=== PATIENT | female | born 1965 | race Caucasian/White ===

== ENCOUNTER 2020-12-22 07:48 | Outpatient (CLI) | payer OTHER, SELFPAY ==
--- NOTE | ~2020-12-22 | MM_ITS ---
EXAMINATION: MM screening [facility] BI w brandt HISTORY: Screening TECHNIQUE: Craniocaudal and mediolateral oblique 3-D tomosynthesis images were obtained and synthetic 2-D images were generated. CAD analysis was submitted and interpreted. COMPARISON: No prior mammogram is available for comparison at this institution. BREAST PARENCHYMAL COMPOSITION: There are scattered areas of fibroglandular density. FINDINGS: There is no evidence of suspicious mass, calcification, or architectural distortion to sugg est malignancy in either breast. There has been no suspicious interval change. IMPRESSION: 1. No mammographic evidence of malignancy. 2. Recommend routine screening mammography in one year. BI-RADS Category 1: Negative Reviewed, dictated and finalized at location A.
== END 2020-12-22 07:49 | disposition home or self-care (01) ==
LOC: ANHIMG 07:51
PROVIDERS: PCP Family Medicine; Visit Provider Obstetrics & Gynecology
DX: Z12.31 Encounter for screening mammogram for malignant neoplasm of breast (principal)
CPT/HCPCS: 77063; 77067

== ENCOUNTER 2021-07-14 09:53 | Emergency (ER) | payer BC, SELFPAY ==
--- NOTE | ~2021-07-14 | CT_ITS ---
EXAMINATION: CT abdomen pelvis w con INDICATION: Abdominal pain and nausea, history of ulcerative colitis TECHNIQUE: Computed tomographic images of the abdomen and pelvis were obtained after the administrati on of 100 cc of Omnipaque 350 intravenous contrast. The dose-length product (DLP) was 1012.67 mGy-cm. Automated exposure control and iterative reconstruction technique were employed. COMPARISON: 09/26/2018 FINDINGS: The lung bases are clear. The heart size is normal. The gallbladder is surgically absent. S cattered drop gallstones are again noted. Cysts of the liver measure up to 8 mm. The spleen, pancreas , and adrenal glands are normal. Cysts of the kidneys measure up to 1.9 cm on the left. No pathologic ally enlarged abdominal or pelvic lymph nodes are identified. There is no free intraperitoneal gas or evidence of bowel obstruction. There is mild wall thickening of the distal transverse and descending colon. A small amount of gas is present in the urinary bladder which may be due to catheterization. Clinically correlate. There is moderate lumbar spondylosis. IMPRESSION: 1. Mild wall thickening of the distal transverse and descending colon which may reflect mild colitis. Reviewed, dictated and finalized at location A.
[2021-07-14 09:55] VITALS: BP 154/86; PULSE 97; RESP 18; TEMP 36.3; O2SAT 100
[2021-07-14 10:15] LABS: Basophils Percent Auto 0.3 % (0.2-1.2); Eosinophils Absolute Auto 0.1 K/mm3 (0-0.3); Eosinophils Percent Auto 0.7 % (0-4.4); Hematocrit 47.4 % (37.0-47.0); Hemoglobin 16.1 g/dL (12.0-15.0); Immature Granulocyte Absolute 0.02 K/mm3 (0.00-0.031); Immature Granulocyte Percent A 0.2 % (0-0.5); Lymphocytes Absolute Auto 2.12 K/mm3 (0.9-3.2); Lymphocytes Percent Auto 21.7 % (18.3-44.2); Mean Corpuscular Hemoglobin 30.5 pg (26-34); Mean Corpuscular Volume 89.8 fl (80-100); Mean Platelet Volume 8.9 fl (7.4-10.4); Monocytes Absolute Auto 0.6 K/mm3 (0.1-0.6); Monocytes Percent Auto 5.6 % (2.6-8.5); Neutrophils Percent Auto 71.5 % (45.5-73.1); Platelet Count Result 318 k/mm3 (150-375); Red Blood Count 5.28 M/mm3 (4.2-5.4); White Blood Count 9.8 K/mm3 (4.5-10.0)
[2021-07-14 10:25] LABS: INR 1.1; Prothrombin Time 13.7 Seconds (11.1-14.7)
[2021-07-14 10:26] LABS: Partial Thromboplastin Time 29.8 SECONDS (22.3-36.8)
[2021-07-14 10:27] LABS: Alanine Aminotransferase 26 U/L (4-35); Albumin Level 4.8 g/dL (3.5-5.1); Alkaline Phosphatase 91 U/L (38-126); Anion Gap 9 mmol/L (8-16); Aspartate Amino Transferase 30 U/L (14-36); Bilirubin,Total 0.8 mg/dL (0.2-1.3); Blood Urea Nitrogen 16 mg/dL (7-17); Calcium 9.8 mg/dL (8.4-10.2); Carbon Dioxide 30 mmol/L (22-30); Chloride 101 mmol/L (98-107); Estimated CRCL calculation 64 ml/min; Estimated Glomerular Filt Rate 52; Glucose 101 mg/dL (65-110); Potassium 3.4 mmol/L (3.4-5.0); Sodium 140 mmol/L (137-145)
--- NOTE | 2021-07-14 10:49 | ED.GENADULT ---
HPI - General Adult General Chief complaint: GI Bleed Stated complaint: abdominal pain Time Seen by Provider: 07/14/21 09:57 Source: patient, family and RN notes reviewed Mode of arrival: ambulatory Limitations: no limitations History of Present Illness HPI narrative: 55-year-old female with history of ulcerative colitis, hypertension, high cholesterol presenting to the emergency department for evaluation of nausea vomiting diarrhea and lower abdominal pain. Patient states that the symptoms started yesterday at approximately 4 PM. Patient started with nausea and vomiting and it did progress to diarrhea. Patient states that she has had multiple bowel movements with bright red blood. Patient states due to her decreased p.o. intake that she is passing watery stool with blood. Patient reports a history of ulcerative colitis and does follow-up with GI, Dr. Sawyer. Patient's last colonoscopy was in March 2017. Patient does not take any medications for ulcerative colitis. Related Data Home Medications Medication Instructions Recorded Confirmed cholecalciferol (vitamin D3) 25 1,000 unit PO DAILY 01/17/19 10/31/20 mcg (1,000 unit) chewable tablet Allergies Allergy/AdvReac Type Severity Reaction Status Date / Time No Known Allergies Allergy Unknown Verified 07/14/21 10:14 Review of Systems Review of Systems: CONSTITUTIONAL: Denies fever, chills, or sweats. EYES: Denies visual changes, redness, or discharge. ENT: Denies rhinorrhea, congestion, sore throat, or otalgia. CARDIOVASCULAR: Denies chest pain, palpitations, or edema. RESPIRATORY: Denies cough or dyspnea. GASTROINTESTINAL: See HPI GENITOURINARY: Denies dysuria or hematuria. SKIN: Denies rash or itching. MUSCULOSKELETAL: Denies back pain, joint pain, or myalgia. NEUROLOGIC: Denies headache, numbness, or weakness. PSYCHIATRIC: Denies anxiety or depression. [facility] Past Medical History Medical History Chest skin lesion ANJEL (generalized anxiety disorder) GERD without esophagitis Hyperlipidemia Hypertension IBS (irritable bowel syndrome) Mild intermittent asthma in adult without complication Prolapse of bladder Vitamin D deficiency Surgical History Surgical History History of cholecystectomy History of hernia repair History of partial hysterectomy Family History Family History Mother Diabetes mellitus Cerebrovascular accident Father Hypertension Social History Social History Second hand tobacco smoke exposure: No Smoking end date: 03/14/06 Alcohol intake: current Alcohol use details: Rarely. Substance use: never Substance use type: does not use Gender identity (if verbalized by the patient): Female Spiritual care concerns: No Agree to blood products: Yes Exam Narrative: APPEARANCE: Well appearing, no pain, no distress, well-nourished. HEAD: normocephalic, atraumatic. EYES: PERRLA/EOMI, conjunctivae clear. NOSE: Normal no drainage NECK: Supple. No adenopathy, no masses. RESPIRATORY: Airway patent, respirations nonlabored. Clear to auscultation bilaterally, no rales, rhonchi, wheezing. CARDIOVASCULAR: Regular rate and rhythm without murmurs rubs or gallops. ABDOMINAL: Soft, nondistended, normal bowel sounds, mild lower abdominal tenderness. Patient was Hemoccult negative from below. Patient had no further bloody stools while in the emergency department MUSCULOSKELETAL: Moves all extremities. Strength/ROM intact, No edema, No calf tenderness. NEURO: Alert. Cranial nerves II through XII intact. Good gait. Good coordination SKIN: Warm, dry. Normal Color Course Course Emergency Course: Patient had no further bloody stools in the ED. CT showed evidence of colitis. Patient was Hemoccult negative from
--- NOTE | 2021-07-14 11:08 | PC.NURSE ---
Care assumed of pt at this time. IV access established and pt is awaiting CT Scan.
[2021-07-14] MEDS: HYDROmorphone HCL INJ (*CRX) 1 MG/ML SYR 0.5 MG IV PUSH (12:07)
[2021-07-14 12:10] VITALS: BP 140/79; PULSE 87; RESP 16; O2SAT 100
[2021-07-14] MEDS: CIPROFLOXACIN 500 MG TAB PO (12:35)
[2021-07-14] MEDS: metroNIDAZOLE 250 MG TABLET 500 MG PO (12:38)
[2021-07-14 12:52] VITALS: BP 138/78; PULSE 78; RESP 18; O2SAT 98
== END 2021-07-14 12:53 | disposition home or self-care (01) ==
PROVIDERS: Emergency Provider Emergency Medicine; PCP Family Medicine
DX: K52.9 Noninfective gastroenteritis and colitis, unspecified (principal); I10 Essential (primary) hypertension; E78.5 Hyperlipidemia, unspecified; J45.20 Mild intermittent asthma, uncomplicated; K21.9 Gastro-esophageal reflux disease without esophagitis; E55.9 Vitamin D deficiency, unspecified; N81.10 Cystocele, unspecified; Z87.891 Personal history of nicotine dependence
CPT/HCPCS: 36415; 74177; 80053; 85025; 85610; 85730; 96374; 99284; A9270; J1170; Q9967

== ENCOUNTER 2021-09-25 01:21 | Day surgery (SDC) | payer BC, SELFPAY ==
[2021-09-08 14:47] VITALS: BMI 30.2
--- NOTE | 2021-09-24 14:47 | WPDANESEPPF ---
Anes - Initial Pre Proc Eval Procedure: Operation Date: 09/25/21 08:30 Proposed Procedures p Esophagogastroduodenoscopy & Colonoscopy - Joshua Sawyer MD <Domenico Romeo, DO - Last Filed: 09/24/21 14:48> Date/Time: 09/24/21 14:47 <Domenico Romeo DO - Last Filed: 09/24/21 14:48> Surgeon: Joshua Sawyer MD <Domenico Romeo, DO - Last Filed: 09/24/21 14:48> Pre Op Diagnosis: abnor. CAT scan, colitis, epigastric pain <Domenico Romeo DO - Last Filed: 09/24/21 14:48> Patient Data Age: 56 Gender: F Height: 1.78 m Weight: 95.4 kg <Domenico Romeo DO - Last Filed: 09/24/21 14:48> Allergies Allergy/AdvReac Type Severity Reaction Status Date / Time No Known Allergies Allergy Unknown Verified 09/25/21 07:30 <Domenico Romeo DO - Last Filed: 09/24/21 14:48> Home Medications Medication Instructions Recorded Confirmed Type cholecalciferol (vitamin D3) 25 1,000 unit PO DAILY 01/17/19 09/08/21 History mcg (1,000 unit) chewable tablet albuterol sulfate 90 mcg/actuation 2 puff inhalation Q4-6H PRN 11/06/20 09/08/21 Rx aerosol inhaler (ProAir HFA) shortness of breath or wheezing #8 grams lansoprazole 30 mg capsule,delayed See Rx Instructions .Route 05/24/21 09/08/21 Rx release .COMPLEX #90 caps lisinopril 20 mg tablet 20 mg PO DAILY #90 tabs 05/24/21 09/08/21 Rx simvastatin 40 mg tablet 40 mg PO DAILY #90 tabs 05/27/21 09/08/21 Rx bupropion HCl 200 mg tablet,12 hr 200 mg PO BID #180 tabs 06/01/21 09/08/21 Rx sustained-release ayrmlyap-pxr-K. coag-B. See Rx Instructions PO .COMPLEX 07/15/21 09/08/21 History subtilis-inulin 1 billion cell-1 gram chew tab (Culturelle Probiotic-Multivit) cholestyramine (with sugar) 4 gram 4 g PO DAILY PRN diarrhea #378 08/13/21 09/08/21 Rx oral powder (Questran) grams buspirone 5 mg tablet 5 mg PO BID 09/08/21 09/08/21 History <Domenico Romeo DO - Last Filed: 09/24/21 14:48> Patient hx anesthesia problems: none <Annelise Murray CRNA - Last Filed: 09/25/21 08:26> Family hx anesthesia problems: none <Annelise Murray CRNA - Last Filed: 09/25/21 08:26> Results Review: All pre-operative results and documents have been reviewed as part of the pre-operative evaluation. <Domenico Romeo DO - Last Filed: 09/24/21 14:48> [facility] Past Medical History Medical History: Medical History Chest skin lesion ANJEL (generalized anxiety disorder) GERD without esophagitis History of ulcerative colitis Hyperlipidemia Hypertension IBS (irritable bowel syndrome) Mild intermittent asthma in adult without complication Prolapse of bladder Vitamin D deficiency <Domenico Romeo DO - Last Filed: 09/24/21 14:48> Surgical History Surgical History: Surgical History History of cholecystectomy History of hernia repair History of partial hysterectomy <Domenico Romeo DO - Last Filed: 09/24/21 14:48> Family History Family History: Family History Mother Diabetes mellitus Cerebrovascular accident Father Hypertension <Domenico Romeo DO - Last Filed: 09/24/21 14:48> Social History Social History: Social History Smoking status: Former smoker Second hand tobacco smoke exposure: No Smoking end date: 03/14/06 Alcohol intake: current Alcohol use details: Rarely. Substance use: never Substance use type: does not use Living arrangements: with family Gender identity (if verbalized by the patient): Female Spiritual care concerns: No Agree to blood products: Yes <Domenico Romeo, - Last Filed: 09/24/21 14:48> Anes - Avery Final PreProcedure Day of Procedure
[2021-09-25 07:31] VITALS: BP 147/83; PULSE 82; RESP 20; TEMP 36.4; O2SAT 100; BMI 30.2
[2021-09-25] MEDS: LACTATED RINGERS 1,000 ML 150 ML IV CONT (07:46)
--- NOTE | 2021-09-25 08:16 | PM.IMHP ---
H&P: HPI History of Present Illness Date/Time: 09/25/21 08:16 Chief Complaint: History of abnormal CT scan and epigastric pain. Narrative: This is a 56-year-old white female patient who presents for colonoscopy an EGD. Patient has a history of ER visit in May of 2021 because of bloody diarrhea. At that time CT scan suggests thickening of the colon, it was interpreted as colitis and patient was treated with broad-spectrum antibiotics. Patient states bleeding has resolved. She does not have diarrhea ongoing. She presents today for colonoscopy to assess this more thoroughly. At 1 time in the past was felt to have colitis and it is uncertain whether this is an ongoing lesion. Patient also complains of epigastric abdominal pain bloating and cramping. She has been treated with pantoprazole but also supplements this with lansoprazole and Pepcid but symptoms persist. She does notice some regurgitation. She continues to have abdominal cramping. Some symptoms improved with Gas- X. An EGD is requested to assess for upper GI pain. Review of Systems Review of Systems: Review of systems noncontributory [facility] Past Medical History Medical History (Updated 09/25/21 @ 08:18 by Joshua Sawyer MD) Chest skin lesion ANJEL (generalized anxiety disorder) GERD without esophagitis History of ulcerative colitis Hyperlipidemia Hypertension IBS (irritable bowel syndrome) Mild intermittent asthma in adult without complication Prolapse of bladder Vitamin D deficiency Surgical History Surgical History History of cholecystectomy History of hernia repair History of partial hysterectomy Family History Family History Mother Diabetes mellitus Cerebrovascular accident Father Hypertension Social History Social History Smoking status: Former smoker Second hand tobacco smoke exposure: No Smoking end date: 03/14/06 Alcohol intake: current Alcohol use details: Rarely. Substance use: never Substance use type: does not use Living arrangements: with family Gender identity (if verbalized by the patient): Female Spiritual care concerns: No Agree to blood products: Yes Meds Home Medications and Allergies Home Medications Medication Instructions Recorded Confirmed Type cholecalciferol (vitamin D3) 25 1,000 unit PO DAILY 01/17/19 09/08/21 History mcg (1,000 unit) chewable tablet albuterol sulfate 90 mcg/actuation 2 puff inhalation Q4-6H PRN 11/06/20 09/08/21 Rx aerosol inhaler (ProAir HFA) shortness of breath or wheezing #8 grams lansoprazole 30 mg capsule,delayed See Rx Instructions .Route 05/24/21 09/08/21 Rx release .COMPLEX #90 caps lisinopril 20 mg tablet 20 mg PO DAILY #90 tabs 05/24/21 09/08/21 Rx simvastatin 40 mg tablet 40 mg PO DAILY #90 tabs 05/27/21 09/08/21 Rx bupropion HCl 200 mg tablet,12 hr 200 mg PO BID #180 tabs 06/01/21 09/08/21 Rx sustained-release bxkostzs-jjq-K. coag-B. See Rx Instructions PO .COMPLEX 07/15/21 09/08/21 History subtilis-inulin 1 billion cell-1 gram chew tab (Culturelle Probiotic-Multivit) cholestyramine (with sugar) 4 gram 4 g PO DAILY PRN diarrhea #378 08/13/21 09/08/21 Rx oral powder (Questran) grams buspirone 5 mg tablet 5 mg PO BID 09/08/21 09/08/21 History Allergies Allergy/AdvReac Type Severity Reaction Status Date / Time No Known Allergies Allergy Unknown Verified 09/25/21 07:30 Vital Signs Vital Signs - 24 hr 09/25/21 07:31 Temperature 97.6 F Pulse Rate 82 Respiratory Rate 20 Blood Pressure 147/83 H Pulse Oximetry 100 Oxygen Delivery Room Air Exam Narrative: physical exam reveals patient to be somewhat overweight. HEENT exam reveals no icterus. Lungs are clear to auscultation and percussion. Heart is without murmur or extra sounds. Abdominal exam yonis
[2021-09-25] MEDS: BENZOCAINE (*SP) 60 ML SPRAY CAN (HURRICAINE) 1 SPRAY MUCOUS MEM (08:31)
--- NOTE | 2021-09-25 09:10 | SUR.OPER ---
EGD STARTED 833, ENDED 0837. COLONOSCOPY STARTED O845, ENDED 0909.
[2021-09-25 09:14] VITALS: BP 108/66; PULSE 72; RESP 18; O2SAT 99
[2021-09-25 09:24] VITALS: BP 110/67; PULSE 71; RESP 18; O2SAT 100
[2021-09-25 09:34] VITALS: BP 112/82; PULSE 73; RESP 18; O2SAT 100
== END 2021-09-25 09:39 | disposition home or self-care (01) ==
PROVIDERS: PCP Family Medicine; Visit Provider Internal Medicine Gastroenterology
PROC: 0DJ08ZZ Inspection of Upper Intestinal Tract, Via Natural or Artificial Opening Endoscopic (ICD-10-PCS; CPT 43235; principal; 2021-09-25 08:30)
DX: D12.2 Benign neoplasm of ascending colon (principal); K64.8 Other hemorrhoids; K31.7 Polyp of stomach and duodenum; K21.9 Gastro-esophageal reflux disease without esophagitis; R14.0 Abdominal distension (gaseous); R10.9 Unspecified abdominal pain; I10 Essential (primary) hypertension; E78.5 Hyperlipidemia, unspecified; J45.20 Mild intermittent asthma, uncomplicated; E55.9 Vitamin D deficiency, unspecified; F41.1 Generalized anxiety disorder; Z87.19 Personal history of other diseases of the digestive system; K58.9 Irritable bowel syndrome, unspecified; Z87.891 Personal history of nicotine dependence; Z79.51 Long term (current) use of inhaled steroids; E66.9 Obesity, unspecified; Z68.30 Body mass index [BMI] 30.0-30.9, adult
CPT/HCPCS: 45385; 43250; 88305; J2704; J7120

== ENCOUNTER 2021-12-24 10:21 | Outpatient (CLI) | payer BC, SELFPAY ==
--- NOTE | 2021-12-24 10:58 | ECG_ITS ---
Measurements Intervals [place] Rate: 77 P: 45 IA: 161 QRS: -3 QRSD: 86 T: 30 QT: 345 QTc: 392 Interpretive Statements SINUS RHYTHM NONSPECIFIC T-WAVE ABNORMALITY COMPARED TO ECG 12/01/2018 13:05:39 NO SIGNIFICANT CHANGES Electronically Signed On 12-24-2021 14:58:16 CDT by Tricia Mckeon M.D.
== END 2021-12-24 10:22 | disposition home or self-care (01) ==
LOC: ANHLAB 10:25
PROVIDERS: PCP Family Medicine; Visit Provider Physician Assistant
DX: R94.31 Abnormal electrocardiogram [ECG] [EKG] (principal); Z82.49 Family history of ischemic heart disease and other diseases of the circulatory system
CPT/HCPCS: 93005

== ENCOUNTER 2022-02-06 07:41 | Outpatient (CLI) | payer BC, SELFPAY ==
--- NOTE | ~2022-02-06 | MM_ITS ---
EXAMINATION: MM screening henri BI w brandt HISTORY: Screening mammogram TECHNIQUE: Craniocaudal and mediolateral oblique 3-D tomosynthesis images were obtained and synthetic 2-D images were generated. CAD analysis was submitted and interpreted. COMPARISON: 12/22/2020 bilateral screening mammogram BREAST PARENCHYMAL COMPOSITION: The breasts are almost entirely fatty. FINDINGS: Scattered punctate benign microcalcifications... There is no evidence of suspicious mass, c alcification, or architectural distortion to suggest malignancy in either breast. There has been no s uspicious interval change. IMPRESSION: 1. No mammographic evidence of malignancy. 2. Recommend routine screening mammography in one year. BI-RADS Category 1: Negative Reviewed, dictated and finalized at location A. 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
== END 2022-02-06 07:42 | disposition home or self-care (01) ==
PROVIDERS: PCP Family Medicine; Visit Provider Nurse Practitioner
DX: Z12.31 Encounter for screening mammogram for malignant neoplasm of breast (principal)
CPT/HCPCS: 77063; 77067

== ENCOUNTER 2023-01-05 10:07 | Outpatient (CLI) | payer BC, SELFPAY ==
--- NOTE | ~2023-01-05 | XR_ITS ---
XR sacroiliac joints min 3V 01/05/2023 10:41 Indication: Sciatica. Low back pain Procedure: 3 views sacroiliac joints Comparison: No prior studies for comparison. Findings: There is symmetric appearance to the sacroiliac joints. No significant degenerative change, erosion or ankylosis. Sacral foramen are symmetric. There is osteitis pubis. Impression: 1: No significant abnormality of the sacroiliac joints. Reviewed, dictated and finalized at location B. Impression: 1: No significant abnormality of the sacroiliac joints.
--- NOTE | ~2023-01-05 | XR_ITS ---
XR lumbar spine min 4V 01/05/2023 10:40 Indication: Sciatica. Procedure: 5 views lumbar spine Comparison: No prior studies for comparison. Findings: There is levoscoliosis. There is grade 2 spondylolisthesis at L4-5 secondary to facet hyper trophy. There is disc narrowing at all lumbar levels. There is advanced facet hypertrophy at L3-4 thr ough L5-S1. Vertebral body heights are maintained. There is grade 1 degenerative spondylolisthesis at L5-S1. There is levoscoliosis. Pedicles intact. Sacral foramen are symmetric. Status post cholecyste ctomy. Impression: 1: Severe lumbar spondylosis. Reviewed, dictated and finalized at location B. Impression: 1: Severe lumbar spondylosis.
--- NOTE | ~2023-01-05 | XR_ITS ---
XR elbow RT 2V DATE: 01/05/2023 10:39 INDICATION: Pain and limited range of motion of elbow. No known injury. TECHNIQUE: AP and lateral views COMPARISON: None FINDINGS: No fracture or dislocation or joint effusion. No periosteal reaction or bone destruction. IMPRESSION: Negative Reviewed, dictated and finalized at location A. IMPRESSION: Negative
== END 2023-01-05 10:08 | disposition home or self-care (01) ==
LOC: ANHIMG 10:09
PROVIDERS: PCP Family Medicine; Visit Provider Physician Assistant
DX: M25.521 Pain in right elbow (principal); M54.30 Sciatica, unspecified side
CPT/HCPCS: 72110; 72202; 73070

== ENCOUNTER 2023-02-10 12:10 | Emergency (ER) | payer BC, SELFPAY ==
--- NOTE | ~2023-02-10 | XR_ITS ---
EXAMINATION: XR chest 2V DATE: 02/10/2023 13:14 INDICATION: Palpitations. Chest pressure. TECHNIQUE: Frontal and lateral views of the chest were obtained. COMPARISON: Chest 2 views 02/21/2008 FINDINGS: There is no pneumonia, pleural effusion, or pneumothorax. The heart size is normal. Surgica l clips in the right upper quadrant are likely from cholecystectomy. IMPRESSION: 1. No acute cardiopulmonary disease. Reviewed, dictated and finalized at location A. R BUILDER
[2023-02-10 12:30] VITALS: BP 175/90; PULSE 104; RESP 16; TEMP 36.3; O2SAT 100
--- NOTE | 2023-02-10 12:36 | ECG_ITS ---
Measurements Intervals [place] Rate: 90 P: 35 NC: 154 QRS: -26 QRSD: 91 T: 32 QT: 329 QTc: 404 Interpretive Statements SINUS RHYTHM DELAYED PRECORDIAL R/S TRANSITION BASELINE ARTIFACT- I, III, AVR, AVL, AVF, V4-V6 BORDERLINE ECG COMPARED TO ECG 12/24/2021 11:22:17 NO SIGNIFICANT CHANGES Electronically Signed On 02-10-2023 12:49:48 [employer] by Rishi Hernandez D.O.
[2023-02-10 13:02] LABS: Basophils Percent Auto 0.5 % (0.2-1.2); Eosinophils Absolute Auto 0.1 K/mm3 (0-0.3); Eosinophils Percent Auto 1.9 % (0-4.4); Hematocrit 43.6 % (37.0-47.0); Hemoglobin 14.1 g/dL (12.0-15.0); Immature Granulocyte Absolute 0.03 K/mm3 (0.00-0.031); Immature Granulocyte Percent A 0.5 % (0-0.5); Lymphocytes Absolute Auto 1.68 K/mm3 (0.9-3.2); Lymphocytes Percent Auto 28.9 % (18.3-44.2); Mean Corpuscular HGB Conc 32.3 g/dl (32-36); Mean Corpuscular Hemoglobin 30.5 pg (26-34); Mean Corpuscular Volume 94.2 fl (80-100); Mean Platelet Volume 9.2 fl (7.4-10.4); Monocytes Absolute Auto 0.4 K/mm3 (0.1-0.6); Monocytes Percent Auto 6.2 % (2.6-8.5); Neutrophils Absolute Auto 3.6 K/mm3 (1.3-6.7); Platelet Count Result 272 k/mm3 (150-375); Red Blood Count 4.63 M/mm3 (4.2-5.4); Red Cell Distribution Width 13.1 % (11.5-14.5); White Blood Count 5.8 K/mm3 (4.5-10.0)
[2023-02-10 13:04] LABS: Alanine Aminotransferase 27 U/L (6-35); Albumin Level 4.6 g/dL (3.5-5.1); Alkaline Phosphatase 74 U/L (38-126); Anion Gap 11 mmol/L (8-16); Aspartate Amino Transferase 23 U/L (14-36); Bilirubin,Total 0.7 mg/dL (0.2-1.3); Blood Urea Nitrogen 12 mg/dL (7-17); Calcium 9.8 mg/dL (8.4-10.2); Carbon Dioxide 28 mmol/L (22-30); Chloride 102 mmol/L (98-107); Estimated CRCL calculation 82 ml/min; Estimated Glomerular Filt Rate > 60; Glucose 93 mg/dL (65-110); Lipase 31 U/L (23-300); Potassium 3.8 mmol/L (3.4-5.0); Sodium 141 mmol/L (137-145)
[2023-02-10 13:11] LABS: Prothrombin Time 13.2 Seconds (11.1-14.7)
[2023-02-10 13:14] LABS: Partial Thromboplastin Time 29.6 SECONDS (22.3-36.8); Troponin I < 0.012 ng/mL (0.000-0.034)
[2023-02-10 15:15] VITALS: BP 150/92; PULSE 89; RESP 17; O2SAT 100
[2023-02-10 15:45] VITALS: BP 128/87; PULSE 80; RESP 14; O2SAT 100
--- NOTE | 2023-02-10 16:06 | ED.ARRPALP ---
HPI - Arrhythmia/Palpitations General Chief Complaint: Arrhythmia/Palpitations Stated Complaint: heart fluttering x 30 mins Time Seen by Provider: 02/10/23 15:09 Source: patient Mode of arrival: ambulatory Limitations: no limitations History of Present Illness HPI narrative: This is a 57 year old female that presents to the ER for palpitations. Reports she was just seated and started to feel like her heart was racing. Reports she took her blood pressure and the monitor told her her heart rhythm was abnormal which prompted her to be seen. Denies chest pain, shortness of breath or swelling in her legs. Related Data Home Medications Medication Instructions Recorded Confirmed cholecalciferol (vitamin D3) 25 1,000 unit PO DAILY 01/17/19 01/05/23 mcg (1,000 unit) chewable tablet kxqcqxbd-rqx-N. coag-B. See Rx Instructions PO .COMPLEX 07/15/21 01/05/23 subtilis-inulin 1 billion cell-1 gram chew tab (Culturelle Probiotic-Multivit) Allergies Allergy/AdvReac Type Severity Reaction Status Date / Time No Known Allergies Allergy Unknown Verified 01/05/23 08:33 Review of Systems Review of Systems: CONSTITUTIONAL: Denies fever CARDIOVASCULAR: Reports palpitations. Denies chest pain, or edema. RESPIRATORY: Denies dyspnea. All systems reviewed & are unremarkable except as noted in HPI and below PMFSH Past Medical History Medical History Chest skin lesion ANJEL (generalized anxiety disorder) GERD without esophagitis History of ulcerative colitis Hyperlipidemia Hypertension IBS (irritable bowel syndrome) Mild intermittent asthma in adult without complication Prolapse of bladder Vitamin D deficiency Surgical History Surgical History History of cholecystectomy History of hernia repair History of partial hysterectomy Family History Family History Mother Diabetes mellitus Cerebrovascular accident Father Hypertension Social History Social History Smoking status: Former smoker Second hand tobacco smoke exposure: No Smoking end date: 03/14/06 Alcohol intake: current Alcohol use details: Rarely. Substance use: never Substance use type: does not use Living arrangements: with family Occupation/Education: occupation Gender identity (if verbalized by the patient): Female Spiritual care concerns: No Agree to blood products: Yes Exam Narrative: GENERAL: Well-appearing, well-nourished, and in no acute distress. HEAD: Normocephalic, atraumatic. EYES: EOMI. NECK: Supple. No JVD CHEST: Clear to auscultation. No respiratory distress. No wheezes rales or rhonchi HEART: Regular rate and rhythm. No murmur heard. Normal peripheral pulses. EXTREMITIES: Normal range of motion. No edema. SKIN: Warm, dry, no rash. NEURO: No focal deficits. Alert and oriented x3. PSYCH: Normal mood and affect Course Course Emergency Course: Patient updated on workup and agrees with plan of care Vital Signs Vital signs: Vital Signs Temperature 97.4 F L 02/10/23 12:30 Pulse Rate 104 H 02/10/23 12:30 Respiratory Rate 16 02/10/23 12:30 Blood Pressure 175/90 H 02/10/23 12:30 Pulse Oximetry 100 02/10/23 12:30 Temperature 97.4 F L 02/10/23 12:30 Pulse Rate 104 H 02/10/23 12:30 Respiratory Rate 16 02/10/23 12:30 Blood Pressure 175/90 H 02/10/23 12:30 Pulse Oximetry 100 02/10/23 12:30 MDM - Arrhythmia/Palpitations MDM Narrative Medical decision making narrative: Patient presents to the ER for an episode of palpitations. Mildly tachycardic upon arrival with heart rate of 104, otherwise patient has been in normal sinus rhythm with regular rate. Hypertensive upon arrival, this normalized without intervention. CBC and metabolic panel without
[2023-02-10 16:12] LABS: Troponin I < 0.012 ng/mL (0.000-0.034)
[2023-02-10 16:15] VITALS: BP 128/78; PULSE 85; RESP 15; O2SAT 99
[2023-02-10] MEDS: SODIUM CHLORIDE 0.9% IV 500 ML 999 ML IV CONT (16:19)
[2023-02-10] MEDS: ACETAMINOPHEN 500 MG TABLET 1000 MG PO (16:19)
[2023-02-10] MEDS: PANTOPRAZOLE SODIUM IV 40 MG VIAL IV PUSH (16:19)
[2023-02-10 16:45] VITALS: BP 129/73; PULSE 75; RESP 13; O2SAT 99
[2023-02-10 17:00] VITALS: BP 125/69; PULSE 79; RESP 16; O2SAT 100
[2023-02-10 17:11] LABS: Free T4 Free Thyroxine Reflex 1.16 ng/dL (0.78-2.19)
[2023-02-10 18:28] LABS: Total Triiodothyronine (T3) 2.04 NG/ML (0.97-1.69)
--- NOTE | 2023-02-18 12:08 | WPDHOLTEREM ---
Holter/Event Monitor Holter/Event Monitor Date of procedure: 02/10/23 Holter/Event Procedure: 48 Hr Holter Monitor Indications: Palpitations Conclusion: 1. 48 hour holter monitor on 02/10/23. 2. Underlying rhythm is sinus rhythm. HR range 58-126 bpm; average HR 77 bpm. 3. There are 261 premature supraventricular complexes and 2 supraventricular couplets. No supraventricular tachycardia. 4. There are 730 premature ventricular complexes. No ventricular tachycardia. 5. No sinoatrial or atrioventricular blocks. No significant pauses greater than 2 seconds. 6. No symptoms available for correlation.
== END 2023-02-10 17:35 | disposition home or self-care (01) ==
PROVIDERS: Emergency Medicine; Emergency Provider Physician Assistant; PCP Family Medicine
DX: R00.2 Palpitations (principal); I10 Essential (primary) hypertension; J45.20 Mild intermittent asthma, uncomplicated; E78.5 Hyperlipidemia, unspecified; E55.9 Vitamin D deficiency, unspecified; K21.9 Gastro-esophageal reflux disease without esophagitis; K51.90 Ulcerative colitis, unspecified, without complications; Z90.49 Acquired absence of other specified parts of digestive tract; Z90.711 Acquired absence of uterus with remaining cervical stump; Z87.891 Personal history of nicotine dependence
CPT/HCPCS: 36415; 71046; 80053; 83690; 84439; 84443; 84480; 84484; 85025; 85610; 85730; 93005; 93225; 93226; 96361; 96374; 99284; A9270; C9113; J7040

== ENCOUNTER 2023-06-01 07:44 | Outpatient (CLI) | payer BC, SELFPAY ==
--- NOTE | ~2023-06-01 | MM_ITS ---
EXAMINATION: MM screening [facility] BI w brandt HISTORY: Screening TECHNIQUE: Craniocaudal and mediolateral oblique 3-D tomosynthesis images were obtained and synthetic 2-D images were generated. CAD analysis was submitted and interpreted. COMPARISON: Comparison to multiple prior studies sequentially, with oldest reviewed study dated 12/12. BREAST PARENCHYMAL COMPOSITION: There are scattered areas of fibroglandular density. FINDINGS: There is no evidence of suspicious mass, calcification, or architectural distortion to sugg est malignancy in either breast. There has been no suspicious interval change. IMPRESSION: 1. No mammographic evidence of malignancy. 2. Recommend routine screening mammography in one year. BI-RADS Category 1: Negative Reviewed, dictated and finalized at location A.
== END 2023-06-01 07:45 | disposition home or self-care (01) ==
LOC: ANHIMG 07:48
PROVIDERS: PCP Family Medicine; Visit Provider Obstetrics & Gynecology Gynecology
DX: Z12.31 Encounter for screening mammogram for malignant neoplasm of breast (principal)
CPT/HCPCS: 77063; 77067

== ENCOUNTER 2023-10-31 14:42 | Outpatient (CLI) | payer BC, SELFPAY ==
--- NOTE | ~2023-10-31 | XR_ITS ---
EXAMINATION: XR hip LT 2V w AP pelvis DATE: 10/31/2023 15:08 INDICATION: Left hip pain. TECHNIQUE: An anteroposterior view of the pelvis and 2 views of left hip were obtained. COMPARISON: None. FINDINGS: There is lumbar levoscoliosis and severe spondylosis. No fracture. There is mild osteoarthr itis of the hips. Osteitis pubis is noted. IMPRESSION: 1. Mild osteoarthritis of the hips. Reviewed, dictated and finalized at location A.
--- NOTE | ~2023-10-31 | XR_ITS ---
EXAMINATION: XR lumbar spine min 4V DATE: 10/31/2023 15:08 INDICATION: Low back pain, unspecified. TECHNIQUE: 6 views of lumbar spine were obtained. COMPARISON: Lumbar spine radiographs 01/05/2023 FINDINGS: There is an 8 degrees levocurvature of lumbar spine. There is 10 mm anterolisthesis of L4 o n L5. There is 4 mm anterolisthesis of L5 on S1. Vertebral body heights are normal. There is mildly d ecreased disc height at L2-L3 and L3-L4 and severely decreased disc height at L4-L5 and L5-S1. There is multilevel severe facet joint osteoarthritis. Surgical clips in the right upper quadrant are likel y from cholecystectomy. IMPRESSION: 1. Severe lumbar spondylosis. Reviewed, dictated and finalized at location A.
== END 2023-10-31 14:43 | disposition home or self-care (01) ==
PROVIDERS: PCP Family Medicine; Visit Provider Family Medicine
DX: M47.896 Other spondylosis, lumbar region (principal); M16.12 Unilateral primary osteoarthritis, left hip
CPT/HCPCS: 72110; 73502

== ENCOUNTER 2023-12-02 06:48 | Outpatient (CLI) | payer BC, SELFPAY ==
--- NOTE | ~2023-12-02 | CT_ITS ---
CT of the Abdomen and Pelvis: Indication: Abdominal pain Technique: 2.5 mm axial scans were obtained through the abdomen and pelvis following intravenous adm inistration of 100 cc of Omnipaque 350. Dose reduction technique was used on this scan by utilizing a utomated exposure control and iterative reconstruction technique. The dose-length product (DLP) was 1 556.40 mGy-cm. COMPARISON: 07/14/2021 Findings: Scans through the lung bases are unremarkable. The liver, spleen, pancreas, and adrenal glands are within normal limits. Cholecystectomy clips are p resent. Bilateral parapelvic renal cysts are present. No evidence of aortic aneurysm. No lymphadenop athy. No bowel obstruction or bowel wall thickening. There is no evidence to suggest acute appendicitis. Images through the pelvis were performed. Urinary bladder unremarkable. No pelvic mass seen. No ascit es. 12 mm anterolisthesis of L4 over L5 present. Impression: No acute abnormalities seen. Chronic findings, as above. Reviewed, dictated and finalized at location . Impression: No acute abnormalities seen. Chronic findings, as above.
[2023-12-02 07:10] LABS: Estimated Glomerular Filt Rate > 60
== END 2023-12-02 06:49 | disposition home or self-care (01) ==
PROVIDERS: PCP Family Medicine; Visit Provider Family Medicine
DX: R10.31 Right lower quadrant pain (principal)
CPT/HCPCS: 74177; Q9967

== ENCOUNTER 2024-05-04 08:45 | Outpatient (CLI) | payer BC, SELFPAY ==
--- NOTE | ~2024-05-04 | MR_ITS ---
MRI of the abdomen: Clinical indication: Renal cyst. Technique: Coronal SSFSE ARC, WATER:coronal LAVA-FLEX, Coronal 2D FIESTA FatSat, Axial SSFSE BH ARC, Axial 3D DualEcho BH, Axial SSFSE-IR, Axial DWI b=500, Axial 2D FIESTA FatSat, pre and dynamic postco ntrast Axial LAVA ARC, postcontrast Coronal In and Opposed phase LAVA FLEX . Following intravenous ad ministration of 15 cc MultiHance gadolinium, T1-weighted fat-sat imaging was performed in the axial a nd coronal planes. COMPARISON: CT dated 12/02/2023 Findings: Gallbladder absent. The common bile duct is normal in course and caliber. No filling defect s are seen within the CBD. No evidence of intrahepatic biliary ductal dilatation. The pancreatic duct is normal in size. Liver, spleen, pancreas, and adrenal glands appear normal. Bilateral simple parapelvic renal cysts an d left cortical renal cysts are present. The aorta and the paraaortic regions appear normal. Impression: Bilateral renal cysts, including cortical and parapelvic cysts. No suspicious renal lesion identified . Reviewed, dictated and finalized at location . BUYER Impression: Bilateral renal cysts, including cortical and parapelvic cysts. No suspicious r enal lesion identified.
== END 2024-05-04 08:46 | disposition home or self-care (01) ==
LOC: GOSHIMG 08:45
PROVIDERS: PCP Family Medicine; Visit Provider Student in an Organized Health Care Education/Training Program
DX: N28.1 Cyst of kidney, acquired (principal)
CPT/HCPCS: 74183; A9577

== ENCOUNTER 2024-07-12 08:21 | Outpatient (CLI) | payer BC, SELFPAY ==
--- NOTE | ~2024-07-12 | MM_ITS ---
EXAMINATION: MM screening henri BI w brandt HISTORY: Screening TECHNIQUE: Craniocaudal and mediolateral oblique 3-D tomosynthesis images were obtained and synthetic 2-D images were generated. CAD analysis was submitted and interpreted. COMPARISON: 02/06/2022 BREAST PARENCHYMAL COMPOSITION: Not dense: There are scattered areas of fibroglandular density. FINDINGS: There is no evidence of suspicious mass, calcification, or architectural distortion to sugg est malignancy in either breast. There has been no suspicious interval change. IMPRESSION: 1. No mammographic evidence of malignancy. 2. Recommend routine screening mammography in one year. BI-RADS Category 1: Negative Reviewed, dictated and finalized at location A.
--- OUTSIDE RECORDS SUMMARY | 2024-07-12 08:27 | XMS_ITS | Continuity of Care Document ---
Author Organization [facility] Address [address] [facility] [address] [place] [address] Phone Care Team Providers Care Textile Converter Name Role Phone Kartik Ochoa Unavailable Unavailable Procedures Procedure Date Post-op Follow-up Visit After Cataract Laser Surgery Post-op Follow-up Visit After Cataract Laser Surgery Office/outpatient Visit, Est Advance Directives Directive Yes / No Effective Date File Name No Information Encounters Encounter Description Practice Location Reason(s) For Visit Diagnoses Date Provider Providers Copied on Encounter [facility], [address] [place] [address] [address], [place], [place], [id number], tel:[phone] [facility] No Information [address]dugo. [address] [facility] , [address], [place], [place], [facility], . tel:[phone] Referring Provider: Joan Humphreys OD, [facility] [address] [place], [place], [facility]. tel:[phone] [facility], [address] [place] [address] [address], [place], [place], [address], [place] tel:[phone] [facility] No Information 4-[address]ela Verdugo. [address] [facility] , [address], [place], [place], [facility], . tel:[phone] Referring Provider: Joan Humphreys OD, [facility] [address] [place], [address]. tel:[phone] [facility], [address] [place] [address] [address], [place], [place], [address], tel:[phone] [facility] No Information 8 Doisy Edward. Formerly [facility] , [address], [place], [place], [facility], . tel:[phone] Referring Provider: Joan Humphreys OD, [facility] [address] [place], [address]. tel:[phone] [facility], [address] [place] [address] [address], [place], [place], [id number], tel:[phone] [facility] No Information [facility] Edninfa. Formerly [facility] , [address], [place], [place], [facility], . tel:[phone] Referring Provider: Joan Humphreys OD, [facility] [address] [place], [address]. tel:[phone] Office/outpat ient Visit, [facility], [address] [place] [address] [address], [place], [place], [address], tel:[phone] [facility] No Information [employer] Edninfa. [facility]ly [facility] , [address], [place], [place], [facility], . tel:[phone] Family History Family Member Type Diagnosis Age At Onset No Information Payers Payer name Insurance type Covered green party ID Authoriza tion(s) No Information Social History Type Description Quantity Date Captured Comments Sex Female Smoking Status No Information Chief Complaint And Reason For Visit No Information Reason For Referral Reason For Referral No Information History Of Present Illness Encounter Date Complaint History Of Prese nt Illness No Information Functional Status Date Functional Assessmen t No Information Instructions Date Instruction Additional Infor mation No Information Assessments Type Assessment Date No Information Patient Care Teams Name Effective Dates (start - stop) Status Members No Information
== END 2024-07-12 08:22 | disposition home or self-care (01) ==
PROVIDERS: PCP Family Medicine; Visit Provider Nurse Practitioner
DX: Z12.31 Encounter for screening mammogram for malignant neoplasm of breast (principal)
CPT/HCPCS: 77063; 77067

== ENCOUNTER 2024-07-26 04:52 | Emergency (ER) | payer BC, SELFPAY ==
[2024-07-26] VITALS (23 sets, daily range): BP systolic 115–167; BP diastolic 78–94; PULSE 70–88; RESP 11–917; TEMP 36.6; O2SAT 97–100
--- NOTE | ~2024-07-26 | XR_ITS ---
Portable chest x-ray Comparison: 02/10/2023 Clinical History: Palpitations Findings: Lungs are clear, without focal consolidation or pleural effusion. Cardiomediastinal silho uette is stable. Bones and soft tissues are unremarkable. Impression: Normal chest. Reviewed, dictated and finalized at [facility]. Impression: Normal chest.
--- OUTSIDE RECORDS SUMMARY | 2024-07-26 04:54 | XMS_ITS | Continuity of Care Document ---
Author Organization [facility] Address [address] [facility] [address] [place] [address] Phone Care Team Providers Care Licensed Clinical Psychologist Name Role Phone Kartik Ochoa Unavailable Unavailable Procedures Procedure Date Post-op Follow-up Visit After Cataract Laser Surgery Post-op Follow-up Visit After Cataract Laser Surgery Office/outpatient Visit, Est Advance Directives Directive Yes / No Effective Date File Name No Information Encounters Encounter Description Practice Location Reason(s) For Visit Diagnoses Date Provider Providers Copied on Encounter [facility], [address] [place] [address] [address], [place], [place], [address], tel:[phone] [facility] No Information [address]riela Verdugo. [address] [facility] , [address], [place], [place], [facility], . tel:[phone] Referring Provider: Joan Humphreys OD, [facility] [address] [place], [place], [facility]. tel:[phone] [facility], [address] [place] [address] [address], [place], [place], [address], [place] tel:[phone] [facility] No Information 4-[address] Gabriela Verdugo. [address] [facility] , [address], [place], [place], [facility], . tel:[phone] Referring Provider: Joan Humphreys OD, [facility] [address] [place], [address]. tel:[phone] [facility], [address] [place] [address] [address], [place], [place], [address], tel:[phone] [facility] No Information 8 Doisy Edward. Counts include 234 beds at the [facility] , [address], [place], [place], [facility], . tel:[phone] Referring Provider: Joan Humphreys OD, [facility] [address] [place], [address]. tel:[phone] [facility], [address] [place] [address] [address], [place], [place], [address], tel:[phone] [facility] No Information [facility] Edninfa. Counts include 234 beds at the [facility] , [address], [place], [place], [facility], . tel:[phone] Referring Provider: Joan Humphreys OD, [facility] [address] [place], [address]. tel:[phone] Office/outpat ient Visit, [facility], [address] [place] [address] [address], [place], [place], [address], tel:[phone] [facility] [place] No Information [employer] Edninfa. Counts include 234 beds at the [facility] , [address], [place], [place], [facility], . tel:[phone] Family History Family Member Type Diagnosis Age [...]
--- NOTE | 2024-07-26 04:56 | ECG_ITS ---
Test Date: 2024-07-26 05:06:39 Measurements Intervals Carpio Rate: 84 P: 3 MN: 167 QRS: -35 QRSD: 89 T: 34 QT: 336 QTc: 397 Interpretive Statements SINUS RHYTHM LEFT AXIS DEVIATION [QRS AXIS < -30] PATTERN CONSISTENT WITH PULMONARY DISEASE No previous ECG available for comparison Electronically Signed On 07-26-2024 16:00:07 CDT by Jae Weinberg M.D.
[2024-07-26 05:07] LABS: Basophils Percent Auto 0.6 % (0.2-1.2); Eosinophils Absolute Auto 0.2 K/mm3 (0-0.3); Eosinophils Percent Auto 2.4 % (0-4.4); Hematocrit 46.7 % (37.0-47.0); Hemoglobin 14.6 g/dL (12.0-15.0); Immature Granulocyte Absolute 0.03 K/mm3 (0.00-0.031); Immature Granulocyte Percent A 0.5 % (0-0.5); Lymphocytes Absolute Auto 1.91 K/mm3 (0.9-3.2); Lymphocytes Percent Auto 28.8 % (18.3-44.2); Mean Corpuscular HGB Conc 31.3 g/dl (32-36); Mean Corpuscular Hemoglobin 30.1 pg (26-34); Mean Corpuscular Volume 96.3 fl (80-100); Monocytes Absolute Auto 0.5 K/mm3 (0.1-0.6); Monocytes Percent Auto 7.1 % (2.6-8.5); Neutrophils Percent Auto 60.6 % (45.5-73.1); Platelet Count Result 273 k/mm3 (150-375); Red Blood Count 4.85 M/mm3 (4.2-5.4); Red Cell Distribution Width 12.9 % (11.5-14.5); White Blood Count 6.6 K/mm3 (4.5-10.0)
[2024-07-26 05:20] LABS: Alanine Aminotransferase 56 U/L (6-35); Albumin Level 4.7 g/dL (3.5-5.1); Alkaline Phosphatase 109 U/L (38-126); Anion Gap 10 mmol/L (4-12); Aspartate Amino Transferase 48 U/L (14-36); Bilirubin,Total 0.5 mg/dL (0.2-1.3); Blood Urea Nitrogen 15 mg/dL (7-17); Calcium 9.7 mg/dL (8.4-10.2); Carbon Dioxide 29 mmol/L (22-30); Chloride 105 mmol/L (98-107); Estimated CRCL calculation 88 ml/min; Estimated Glomerular Filt Rate > 60; Glucose 99 mg/dL (65-110); Lipase 54 U/L (23-300); Potassium 4.2 mmol/L (3.4-5.0); Sodium 144 mmol/L (137-145)
[2024-07-26 05:31] LABS: Troponin I < 0.012 ng/mL (0.000-0.034)
[2024-07-26 05:35] LABS: INR 0.9; Prothrombin Time 12.6 Seconds (11.1-14.7)
[2024-07-26 05:36] LABS: Partial Thromboplastin Time 32.4 Seconds (22.3-36.8)
--- OUTSIDE RECORDS SUMMARY | 2024-07-26 05:43 | XMS_ITS | Continuity of Care Document ---
Author Organization [facility] Address [address] [facility] [address] [place] [address] Phone Care Team Providers Care Laminating Machine Offbearer Name Role Phone Kartik Ochoa Unavailable Unavailable Procedures Procedure Date Post-op Follow-up Visit After Cataract Laser Surgery Post-op Follow-up Visit After Cataract Laser Surgery Office/outpatient Visit, Est Advance Directives Directive Yes / No Effective Date File Name No Information Encounters Encounter Description Practice Location Reason(s) For Visit Diagnoses Date Provider Providers Copied on Encounter [facility], [address] [place] [address] [address], [place], [place], [address], tel:[phone] [facility] [place] No Information [address]dugo. [address] [facility] , [address], [place], [place], [facility], . tel:[phone] Referring Provider: Joan Humphreys OD, [facility] [address] [place], [place], [facility]. tel:[phone] [facility], [address] [place] [place] [address] [address], [place], [place], [id number], [place] tel:[phone] [facility] No Information 4-[address] Verdugo. [address] [facility] , [address], [place], [place], [facility], . tel:[phone] Referring Provider: Joan Humphreys OD, [facility] [address] [place], [address]. tel:[phone] [facility], [address] [place] [address] [address], [place], [place], [address], tel:[phone] [facility] No Information 8 Doisy Edward. Counts include 234 beds at the [facility] , [address], [place], [place], [facility], . tel:[phone] Referring Provider: Joan Humphreys OD, [facility] [address] [place], [address]. tel:[phone] [facility], [address] [place] [place] [address] [address], [place], [place], [address], tel:[phone] [facility] No Information [facility] Edninfa. Counts include 234 beds at the [facility] , [address], [place], [place], [facility], . tel:[phone] Referring Provider: Joan Humphreys OD, [facility] [address] [place], [address]. tel:[phone] Office/outpat ient Visit, [facility], [address] [place] [address] [address], [place], [place], [address], tel:[phone] [facility] [place] No Information [employer] Edninfa. Counts include 234 beds at the [facility] , [address], [place], [place], [facility], . tel:[phone] Family History Family Member Type Diagnosis Age At Onset No Information Payers Payer name Insurance type Covered alliance party ID Authoriza tion(s) No Information Social [...]
--- NOTE | 2024-07-26 06:22 | ED.GENADULT ---
HPI - General Adult General Chief complaint: Arrhythmia/Palpitations <Wilian Hernandes MD - Last Filed: 07/26/24 06:32> Stated complaint: palpitations <Wilian Hernandes MD - Last Filed: 07/26/24 06:32> Time Seen by Provider: 07/26/24 04:56 <Wilian Hernandes MD - Last Filed: 07/26/24 06:32> History of Present Illness HPI narrative: This is a 58-year-old female history of palpitations presenting for palpitations. Patient woke up around 4:00 a.m. with palpitations. She felt like her heart was racing. This lasted 15-20 minutes before resolving on its own. It was associated with a feeling of chest pressure. It was nonradiating, 410 in intensity. She said that she felt very warm during this episode although she has been having hot flashes for the last week. She had a hysterectomy or 21 so she does not have a menstrual. She wonders if she is in menopause. Patient has had a Holter monitor in the past which shows frequent PACs and PVCs but no other dysrhythmias. Patient denies any recent illness fevers chills shortness of breath abdominal pain nausea vomiting diarrhea or urinary symptoms. <Wilian Hernandes MD - Last Filed: 07/26/24 06:32> Related Data Home medications: Home Medications Medication Instructions Recorded Confirmed Last Taken Type cholecalciferol (vitamin D3) 25 1,000 unit PO DAILY 01/17/19 07/26/24 09/24/21 History mcg (1,000 unit) chewable tablet [id number]-fvd-A. coag-B. See Rx Instructions PO .COMPLEX 07/15/21 07/26/24 09/24/21 History subtilis-inulin 1 billion cell-1 gram chew tab (Culturelle Probiotic-Multivit) <Wilian Hernandes MD - Last Filed: 07/26/24 06:32> Allergies/adverse reactions: Allergies Allergy/AdvReac Type Severity Reaction Status Date / Time No Known Allergies Allergy Unknown Verified 07/26/24 04:53 <Wilian Hernandes MD - Last Filed: 07/26/24 06:32> [facility] Past Medical History Medical History: Medical History History of ulcerative colitis Chest skin lesion Vitamin D deficiency Mild intermittent asthma in adult without complication IBS (irritable bowel syndrome) GERD without esophagitis ANJEL (generalized anxiety disorder) Hyperlipidemia Hypertension Prolapse of bladder <Wilian Hernandes MD - Last Filed: 07/26/24 06:32> Surgical History Surgical History: Surgical History History of hernia repair History of cholecystectomy History of partial hysterectomy <Wilian Hernandes MD - Last Filed: 07/26/24 06:32> Family History Family History: Family History Mother Diabetes mellitus Cerebrovascular accident Father Hypertension <Wilian Hernandes MD - Last Filed: 07/26/24 06:32> Social History Social History: Social History Smoking status: Former smoker Second hand tobacco smoke exposure: No Smoking end date: 03/14/06 Alcohol intake: current Alcohol use details: Rarely. Substance use: never Substance use type: does not use Living arrangements: with family Occupation/Education: occupation Gender identity (if verbalized by the patient): Female Spiritual care concerns: No Agree to blood products: Yes <Wilian Hernandes MD - Last Filed: 07/26/24 06:32> Exam Narrative: APPEARANCE: No apparent distress. Head: atraumatic. EYES: EOMI, NOSE: Atraumatic NECK: Trachea midline RESPIRATORY: No increased rate of breathing clear to auscultation CARDIOVASCULAR: RRR, no peripheral edema ABDOMINAL: Non-distended soft nontender no guarding rebound MUSCULOSKELETAl: No obvious deformities NEURO: Alert. Moving 4/4 extremities SKIN:: Warm, dry. Normal color PSYCHIATRIC: Normal affect <Wilian Hernandes MD - Last Filed: 07/26/24 06:32> Course Reevaluation(s) Reevaluation #1: I was to follow up on 2nd troponin which is negative. Repeat EKG unremarkable. Patient in no distress, while I was in the room speaking with her, she had no further PVCs or ectopy on telemetry. She is comfortable with outpatient management and strict return precautions. <Mari Eugene MD - Last Filed: 07/26/24 09:47> Vital Signs Vital signs: Vital Signs Temperature 98 F 07/26/24 04:56 Pulse Rate 86 07/26/24 04:56 Respiratory Rate 19 07/26/24 04:56 Blood Pressure 167/94 H 07/26/24 04:56 Pulse Oximetry 100 07/26/24 04:56 Oxygen Delivery Room Air 07/26/24 04:56 Temperature 98 F 07/26/24 04:56 Pulse Rate 80 07/26/24 06:15 Respiratory Rate 17 07/26/24 06:15 Blood Pressure 115/79 07/26/24 06:15 Pulse Oximetry 97 07/26/24 06:15 Oxygen Delivery Room Air 07/26/24 04:56 <Wilian Hernandes MD - Last Filed: 07/26/24 06:32> Vital Signs Temperature 98 F 07/26/24 04:56 Pulse Rate 86 07/26/24 04:56 Respiratory Rate 19 07/26/24 04:56 Blood Pressure 167/94 H 07/26/24 04:56 Pulse Oximetry 100 07/26/24 04:56 Oxygen Delivery Room Air 07/26/24 04:56 Temperature 98 F 07/26/24 04:56 Pulse Rate 80 07/26/24 06:15 Respiratory Rate 17 07/26/24 06:15 Blood Pressure 115/79 07/26/24 06:15 Pulse Oximetry 97 07/26/24 06:15 Oxygen Delivery Room Air 07/26/24 04:56 <Mari Eugene MD - Last Filed: 07/26/24 09:47> Medical Decision Making MDM Narrative Medical decision making narrative: -Course: 58-year-old female presenting with palpitations and chest pressure. Symptoms improved by time she arrived in emergency department. EKG shows normal sinus rhythm. Laboratory studies including troponin undetectable. Chest x-ray normal. Patient signed out to the oncoming physician pending 2nd troponin. If that is negative and she does not develop any dysrhythmias during her stay the patient can be discharged follow-up with her primary care physician. -DDX includes but is not limited to: Atrial fibrillation, SVT, anxiety, menopause, malignant dysrhythmia, ACS, PE Independent EKG interpretation: Rhythm [sinus], Rate [84], [place] -[leftward], [place] -[normal], QRS [narrow], QTC [normal], T waves -[negative for concerning inversions], ST Segments - [Negative for concerning elevations] Final interpretations: [Normal Sinus Rhythm] <Wilian Hernandes MD - Last Filed: 07/26/24 06:32> Vital Signs Vital Signs: Vital Signs Temperature 98 F 07/26/24 04:56 Pulse Rate 86 07/26/24 04:56 Respiratory Rate 19 07/26/24 04:56 Blood Pressure 167/94 H 07/26/24 04:56 Pulse Oximetry 100 07/26/24 04:56 Oxygen Delivery Room Air 07/26/24 04:56 Temperature 98 F 07/26/24 04:56 Pulse Rate 80 07/26/24 06:15 Respiratory Rate 17 07/26/24 06:15 Blood Pressure 115/79 07/26/24 06:15 Pulse Oximetry 97 07/26/24 06:15 Oxygen Delivery Room Air 07/26/24 04:56 <Wilian Hernandes MD - Last Filed: 07/26/24 06:32> Vital Signs Temperature 98 F 07/26/24 04:56 Pulse Rate 86 07/26/24 04:56 Respiratory Rate 19 07/26/24 04:56 Blood Pressure 167/94 H 07/26/24 04:56 Pulse Oximetry 100 07/26/24 04:56 Oxygen Delivery Room Air 07/26/24 04:56 Temperature 98 F 07/26/24 04:56 Pulse Rate 80 07/26/24 06:15 Respiratory Rate 17 07/26/24 06:15 Blood Pressure 115/79 07/26/24 06:15 Pulse Oximetry 97 07/26/24 06:15 Oxygen Delivery Room Air 07/26/24 04:56 <Mari Eugene MD - Last Filed: 07/26/24 09:47> Lab Data Result diagrams: 07/26/24 05:03 07/26/24 05:03 <Wilian Hernandes MD - Last Filed: 07/26/24 06:32> Labs: Lab Results 07/26/24 07/26/24 Range/Units 05:03 07:58 WBC 6.6 (4.5-10.0) K/mm3 RBC 4.85 (4.2-5.4) M/mm3 Hgb 14.6 (12.0-15.0) g/dL Hct 46.7 (37.0-47.0) % MCV 96.3 (80-100) fl MCH 30.1 (26-34) pg MCHC 31.3 L (32-36) g/dl RDW 12.9 (11.5-14.5) % Plt Count 273 (150-375) k/mm3 MPV 9.0 (7.4-10.4) fl Immature Gran % (Auto) 0.5 (0-0.5) % Neut % (Auto) 60.6 (45.5-73.1) % Lymph % (Auto) 28.8 (18.3-44.2) % [place] % (Auto) 7.1 (2.6-8.5) % Eos % (Auto) 2.4 (0-4.4) % Baso % (Auto) 0.6 (0.2-1.2) % Lymph # (Auto) 1.91 (0.9-3.2) K/mm3 [place] # (Auto) 0.5 (0.1-0.6) K/mm3 Eos # (Auto) 0.2 (0-0.3) K/mm3 Baso # (Auto) 0.0 (0.0-0.1) K/mm3 Abs Immat Gran (auto) 0.03 (0.00-0.031) K/mm3 Absolute Neuts (auto) 4.0 (1.3-6.7) K/mm3 Absolute Nucleated RBC 0.000 (0.0-0.012) K/mm3 Nucleated RBC % 0.0 (0.0-0.2) % PT 12.6 (11.1-14.7) Seconds INR 0.9 APTT 32.4 (22.3-36.8) Seconds Sodium 144 (137-145) mmol/L Potassium 4.2 (3.4-5.0) mmol/L Chloride 105 (98-107) mmol/L Carbon Dioxide 29 (22-30) mmol/L Anion Gap 10 (4-12) mmol/L BUN 15 (7-17) mg/dL Creatinine 0.76 (0.7-1.0) mg/dL Estim Creat Clear Calc 88 ml/min Estimated GFR > 60 (59 - ) Glucose 99 (65-110) mg/dL Calcium 9.7 (8.4-10.2) mg/dL Total Bilirubin 0.5 (0.2-1.3) mg/dL AST 48 H (14-36) U/L ALT 56 H (6-35) U/L Alkaline Phosphatase 109 (38-126) U/L Troponin I < 0.012 < 0.012 (0.000-0.034) ng/mL Total Protein 8.0 (6.3-8.2) g/dL Albumin 4.7 (3.5-5.1) g/dL Lipase 54 (23-300) U/L <Wilian Hernandes MD - Last Filed: 07/26/24 06:32> Lab Results 07/26/24 07/26/24 Range/Units 05:03 07:58 WBC 6.6 (4.5-10.0) K/mm3 RBC 4.85 (4.2-5.4) M/mm3 Hgb 14.6 (12.0-15.0) g/dL Hct 46.7 (37.0-47.0) % MCV 96.3 (80-100) fl MCH 30.1 (26-34) pg MCHC 31.3 L (32-36) g/dl RDW 12.9 (11.5-14.5) % Plt Count 273 (150-375) k/mm3 MPV 9.0 (7.4-10.4) fl Immature Gran % (Auto) 0.5 (0-0.5) % Neut % (Auto) 60.6 (45.5-73.1) % Lymph % (Auto) 28.8 (18.3-44.2) % [place] % (Auto) 7.1 (2.6-8.5) % Eos % (Auto) 2.4 (0-4.4) % Baso % (Auto) 0.6 (0.2-1.2) % Lymph # (Auto) 1.91 (0.9-3.2) K/mm3 [place] # (Auto) 0.5 (0.1-0.6) K/mm3 Eos # (Auto) 0.2 (0-0.3) K/mm3 Baso # (Auto) 0.0 (0.0-0.1) K/mm3 Abs Immat Gran (auto) 0.03 (0.00-0.031) K/mm3 Absolute Neuts (auto) 4.0 (1.3-6.7) K/mm3 Absolute Nucleated RBC 0.000 (0.0-0.012) K/mm3 Nucleated RBC % 0.0 (0.0-0.2) % PT 12.6 (11.1-14.7) Seconds INR 0.9 APTT 32.4 (22.3-36.8) Seconds Sodium 144 (137-145) mmol/L Potassium 4.2 (3.4-5.0) mmol/L Chloride 105 (98-107) mmol/L Carbon Dioxide 29 (22-30) mmol/L Anion Gap 10 (4-12) mmol/L BUN 15 (7-17) mg/dL Creatinine 0.76 (0.7-1.0) mg/dL Estim Creat Clear Calc 88 ml/min Estimated GFR > 60 (59 - ) Glucose 99 (65-110) mg/dL Calcium 9.7 (8.4-10.2) mg/dL Total Bilirubin 0.5 (0.2-1.3) mg/dL AST 48 H (14-36) U/L ALT 56 H (6-35) U/L Alkaline Phosphatase 109 (38-126) U/L Troponin I < 0.012 < 0.012 (0.000-0.034) ng/mL Total Protein 8.0 (6.3-8.2) g/dL Albumin 4.7 (3.5-5.1) g/dL Lipase 54 (23-300) U/L <Mari Eugene MD - Last Filed: 07/26/24 09:47> Discharge Plan Discharge Clinical Impression: Palpitations <Wilian Hernandes MD - Last Filed: 07/26/24 06:32> Patient Disposition: Home <Wilian Hernandes MD - Last Filed: 07/26/24 06:32> Condition: Stable <Wilian Hernandes MD - Last Filed: 07/26/24 06:32> Instructions: Antibiotic Form, Heart Palpitations (DC) <Wilian Hernandes MD - Last Filed: 07/26/24 06:32> Additional Instructions: You were seen in the emergency department for palpitations. Your workup here was reassuring and you did not develop palpitations while in the emergency department. Please follow-up with your primary care physician for further management. If you develop any new or worsening symptoms please return to the ED for re-evaluation. <Wilian Hernandes MD - Last Filed: 07/26/24 06:32> Patient Language: Georgian <Wilian Hernandes MD - Last Filed: 07/26/24 06:32> Prescriptions: No Action Culturelle Probiotic-Multivit 1 billion cell- 1 gram tablet,chewable See Rx Instructions PO .COMPLEX Rx Instructions: PO; cholecalciferol (vitamin D3) 1,000 unit tablet,chewable 1,000 unit PO DAILY omeprazole 20 mg capsule,delayed release(DR/EC) 20 mg PO DAILY Qty: 90 0RF famotidine [Pepcid AC] 10 mg tablet 10 mg PO QHS PRN (Reason: gastric reflux) Qty: 90 0RF simvastatin 40 mg tablet 40 mg PO DAILY Qty: 90 3RF lisinopril 20 mg tablet 20 mg PO DAILY Qty: 90 3RF mupirocin [Centany] 2 % ointment 1 applic topical BID Qty: 15 0RF buspirone 5 mg tablet 5 mg PO BID PRN (Reason: anxiety) Qty: 180 1RF albuterol sulfate [ProAir HFA] 90 mcg/actuation HFA aerosol inhaler 2 puff INHALATION Q4-6H PRN (Reason: shortness of breath or wheezing) Qty: 8 1RF bupropion HCl 200 mg tablet sustained-release 12 hr 200 mg PO BID Qty: 180 0RF Sutab 1.479-0.188- 0.225 gram tablet See Rx Instructions PO PER PKG DIR Qty: 24 0RF Rx Instructions: PO PER PKG DIR tramadol 50 mg tablet 50 mg PO Q6H PRN (Reason: pain) Qty: 30 0RF <Wilian Hernandes MD - Last Filed: 07/26/24 06:32> Follow-up/Referrals: Nevaeh Dominguez MD [Primary Care Provider] - Jae Weinberg MD [Physician] - 2 Days <Wilian Hernandes MD - Last Filed: 07/26/24 06:32>
--- NOTE | 2024-07-26 08:07 | ECG_ITS ---
Test Date: 2024-07-26 08:10:35 Measurements Intervals [place] Rate: 70 P: 28 [place]: 163 QRS: -16 QRSD: 89 T: 35 QT: 362 QTc: 393 Interpretive Statements SINUS RHYTHM LEFT AXIS DEVIATION ABNORMAL ECG Electronically Signed On 07-27-2024 09:33:16 CDT by Allan Nguyen M.D.
[2024-07-26 08:28] LABS: Troponin I < 0.012 ng/mL (0.000-0.034)
== END 2024-07-26 09:54 | disposition home or self-care (01) ==
PROVIDERS: Emergency Medicine; Emergency Provider Emergency Medicine; PCP Family Medicine
DX: R00.2 Palpitations (principal); E55.9 Vitamin D deficiency, unspecified; K21.9 Gastro-esophageal reflux disease without esophagitis; E78.5 Hyperlipidemia, unspecified; I10 Essential (primary) hypertension; F41.1 Generalized anxiety disorder
CPT/HCPCS: 36415; 71045; 80053; 83690; 84484; 85025; 85610; 85730; 93005; 99284

== ENCOUNTER 2024-09-27 02:33 | Day surgery (SDC) | payer BC, SELFPAY ==
[2024-09-17 13:08] VITALS: BMI 28.0
--- OUTSIDE RECORDS SUMMARY | 2024-09-27 02:36 | XMS_ITS | Continuity of Care Document ---
Author Organization [facility] Address [address] [address] [facility] [address] [place] [address] Phone Care Team Providers Care Marketing Regional Consultant Name Role Phone Kartik Ochoa Unavailable Unavailable Procedures Procedure Date Post-op Follow-up Visit After Cataract Laser Surgery Post-op Follow-up Visit After Cataract Laser Surgery Office/outpatient Visit, Est Advance Directives Directive Yes / No Effective Date File Name No Information Encounters Encounter Description Practice Location Reason(s) For Visit Diagnoses Date Provider Providers Copied on Encounter [facility], [id number] [place] [address] [address], [place], [place], [id number], tel:[phone] [facility] No Information [address]. [address] [facility] , [address], [place], [place], [facility], . tel:[phone] Referring Provider: Joan Humphreys OD, [facility] [address] [place], [place], [place]. tel:[phone] [facility], [address] [place] [address] [address], [place], [place], [id number], [place] tel:[phone] [facility] No Information [address]go. [address] [facility] , [address], [place], [place], [facility], . tel:[phone] Referring Provider: Joan Humphreys OD, [facility] [address] [place], [address]. tel:[phone] [facility], [address] [place] [address] [address], [place], [place], [id number], tel:[phone] [facility] No Information [address]. [facility] , [address], [place], [place], [facility], . tel:[phone] Referring Provider: Joan Humphreys OD, [facility] [address] [place], [address]. tel:[phone] [facility], [address] [place] [address] [address], [place], [place], [id number], tel:[phone] [facility] No Information [facility]. [facility] , [address], [place], [place], [facility], . tel:[phone] Referring Provider: Joan Humphreys OD, [facility] [address] [place], [address]. tel:[phone] Office/outpat ient Visit, [facility], [address] [place] [address] [address], [place], [place], [id number], tel:[phone] [facility] [place] No Information [employer] [facility]. [facility] , [address], [place], [place], [facility], . tel:[phone] Family History Family Member Type Diagnosis Age At Onset No Information Payers Payer name Insurance type Covered constitution party ID Authoriza tion(s) No Information Social [...]
[2024-09-27 08:50] VITALS: BP 146/82; PULSE 80; RESP 18; TEMP 36.1; O2SAT 100; BMI 30.7
[2024-09-27] MEDS: LACTATED RINGERS 1,000 ML 150 ML IV CONT (08:59)
--- NOTE | 2024-09-27 09:05 | WPDANESEPPF ---
Anes - Initial Pre Proc Eval Procedure: Operation Date: 09/27/24 10:00 Proposed Procedures p Screening Colonoscopy - Zachariah Sawyer MD Date/Time: 09/27/24 09:05 Surgeon: Zachariah Sawyer MD Pre Op Diagnosis: Neoplasm screening Patient Data Age: 59 Gender: F Height: 1.78 m Weight: 97.2 kg Last Vital Signs Temp 97 F L 09/27/24 08:50 Pulse 80 09/27/24 08:50 Resp 18 09/27/24 08:50 BP 146/82 H 09/27/24 08:50 Pulse Ox 100 09/27/24 08:50 O2 Del Method Room Air 09/27/24 08:50 Allergies Allergy/AdvReac Type Severity Reaction Status Date / Time No Known Allergies Allergy Unknown Verified 09/27/24 08:48 Home Medications ?Medication ?Instructions ?Recorded ?Confirmed ?Type cholecalciferol (vitamin D3) 25 1,000 unit PO DAILY 01/17/19 09/27/24 History mcg (1,000 unit) chewable tablet jtujsvve-rha-G. coag-B. See Rx Instructions PO .COMPLEX 07/15/21 09/27/24 History subtilis-inulin 1 billion cell-1 gram chew tab (Culturelle Probiotic-Multivit) famotidine 10 mg tablet (Pepcid AC) 10 mg PO QHS PRN gastric reflux 12/17/21 09/17/24 Rx #90 tabs omeprazole 20 mg capsule,delayed 20 mg PO DAILY #90 caps 12/17/21 09/27/24 Rx release simvastatin 40 mg tablet 40 mg PO DAILY #90 tabs 08/24/23 09/27/24 Rx albuterol sulfate 90 mcg/actuation 2 puff inhalation Q4-6H PRN 05/15/24 09/17/24 Rx aerosol inhaler (ProAir HFA) shortness of breath or wheezing #8 grams buspirone 5 mg tablet 5 mg PO BID PRN anxiety #180 tabs 05/15/24 09/17/24 Rx sodium sul 1.479 gram-potas ch See Rx Instructions PO PER PKG DIR 06/25/24 09/17/24 Rx 0.188 gram-magnes sul 0.225 gram #24 tabs tablet (Sutab) lisinopril 20 mg tablet 20 mg PO DAILY #90 tabs 08/10/24 09/27/24 Rx tramadol 50 mg tablet 50 mg PO Q6H PRN pain #30 tabs 08/27/24 09/17/24 Rx bupropion HCl 200 mg tablet,12 hr 200 mg PO BID #180 tabs 09/16/24 09/27/24 Rx sustained-release Patient hx anesthesia problems: none Family hx anesthesia problems: none Results Review: All pre-operative results and documents have been reviewed as part of the pre-operative evaluation. [facility] Past Medical History Medical History History of ulcerative colitis Chest skin lesion Vitamin D deficiency Mild intermittent asthma in adult without complication IBS (irritable bowel syndrome) GERD without esophagitis ANJEL (generalized anxiety disorder) Hyperlipidemia Hypertension Prolapse of bladder Surgical History Surgical History History of hernia repair History of cholecystectomy History of partial hysterectomy Family History Family History Mother Diabetes mellitus Cerebrovascular accident Father Hypertension Social History Social History Smoking status: Former smoker Second hand tobacco smoke exposure: No Smoking end date: 03/14/06 Alcohol intake: current Alcohol use details: Rarely. Substance use: never Substance use type: does not use Living arrangements: with family Occupation/Education: occupation Gender identity (if verbalized by the patient): Female Spiritual care concerns: No Agree to blood products: Yes Anes - Eval Final PreProcedure Day of Procedure 09/27/24 09:05 Patient weight: obese Lungs: normal air movement Airway: Mallampati scale class II and special considerations (Missing upper R tooth. ) Neurological: alert and oriented Last oral intake: >/= 8 hours ASA classification: II Emergent: no Anesthetic plan: proceed Anesthesia type and monitoring: general GIVS and standard monitoring Results Review: All pre-operative results and documents have been reviewed as part of the pre-operative evaluation. HTN, hyperlipidemia. Informed Consent: The patient's anesthetic plan and its attendant risks and benefits were discussed with the patient/family/POA. Questions were solicited and answers provided to the satisfaction of the patient/family/POA.
--- NOTE | 2024-09-27 09:39 | PM.HPGS ---
History of Present Illness History of Present Illness Consent: Risks, benefits, and alternatives have been discussed and questions answered. Patient agrees to proceed with procedure. Chief complaint: Neoplasm screening Narrative: Karen Nicholson is a 59 year old female with colon polyp in 2021 Review of Systems Review of Systems: All systems reviewed & are unremarkable except as noted in HPI and below PMFSH Past Medical History Medical History (Updated 09/27/24 @ 09:39 by Zachariah Sawyer MD) Colon polyp History of ulcerative colitis Chest skin lesion Vitamin D deficiency Mild intermittent asthma in adult without complication IBS (irritable bowel syndrome) GERD without esophagitis ANJEL (generalized anxiety disorder) Hyperlipidemia Hypertension Prolapse of bladder Surgical History Surgical History History of hernia repair History of cholecystectomy History of partial hysterectomy Family History Family History Mother Diabetes mellitus Cerebrovascular accident Father Hypertension Social History Social History Smoking status: Former smoker Second hand tobacco smoke exposure: No Smoking end date: 03/14/06 Alcohol intake: current Alcohol use details: Rarely. Substance use: never Substance use type: does not use Living arrangements: with family Occupation/Education: occupation Gender identity (if verbalized by the patient): Female Spiritual care concerns: No Agree to blood products: Yes Meds Home Medications and Allergies Home Medications ?Medication ?Instructions ?Recorded ?Confirmed ?Type cholecalciferol (vitamin D3) 25 1,000 unit PO DAILY 01/17/19 09/27/24 History mcg (1,000 unit) chewable tablet [id number]-xyd-I. coag-B. See Rx Instructions PO .COMPLEX 07/15/21 09/27/24 History subtilis-inulin 1 billion cell-1 gram chew tab (Culturelle Probiotic-Multivit) famotidine 10 mg tablet (Pepcid AC) 10 mg PO QHS PRN gastric reflux 12/17/21 09/17/24 Rx #90 tabs omeprazole 20 mg capsule,delayed 20 mg PO DAILY #90 caps 12/17/21 09/27/24 Rx release simvastatin 40 mg tablet 40 mg PO DAILY #90 tabs 08/24/23 09/27/24 Rx albuterol sulfate 90 mcg/actuation 2 puff inhalation Q4-6H PRN 05/15/24 09/17/24 Rx aerosol inhaler (ProAir HFA) shortness of breath or wheezing #8 grams buspirone 5 mg tablet 5 mg PO BID PRN anxiety #180 tabs 05/15/24 09/17/24 Rx sodium sul 1.479 gram-potas ch See Rx Instructions PO PER PKG DIR 06/25/24 09/17/24 Rx 0.188 gram-magnes sul 0.225 gram #24 tabs tablet (Sutab) lisinopril 20 mg tablet 20 mg PO DAILY #90 tabs 08/10/24 09/27/24 Rx tramadol 50 mg tablet 50 mg PO Q6H PRN pain #30 tabs 08/27/24 09/17/24 Rx bupropion HCl 200 mg tablet,12 hr 200 mg PO BID #180 tabs 09/16/24 09/27/24 Rx sustained-release Allergies Allergy/AdvReac Type Severity Reaction Status Date / Time No Known Allergies Allergy Unknown Verified 09/27/24 08:48 Vital Signs Vital Signs - 24 hr 09/27/24 08:50 Temperature 97 F L Pulse Rate 80 Respiratory Rate 18 Blood Pressure 146/82 H Pulse Oximetry 100 Oxygen Delivery Room Air Exam Const: General: comfortable and no acute distress HENMT: Face/Nose/Sinus: Normal nares present Eyes: General: appearance normal, both eyes and all related structures Neck: Neck: no JVD Resp: Auscultation: clear to auscultation bilaterally Cardio: Rate: regular rate Rhythm: regular rhythm GI: Inspection: non-distended GI Palp: Yes Soft to palpation Skin: General skin exam: normal color Neuro: Speech: normal speech Extrem: General: normal to inspection Psych: Mental Status: mental status grossly normal Assessment and Plan Assessment and plan (1) Colon polyp: Code(s): K63.5 - Polyp of colon Status: Acute Assessment and Plan: colonoscopy
--- NOTE | 2024-09-27 09:57 | S_PTH ---
PATIENT: Karen Nicholson LOC: [facility] Nelson#:[id number] AGE/SX: 59/F ROOM: RE09/27/[address]: Zachariah Sawyer MD : 1965 BED: DIS: 09/27/2024 SPEC #: [id number] RECD: 09/27/24 11:55 STATUS: [facility] REQ #: [id number] HARESH: 09/27/24 09:[address]: Zachariah Sawyer DEPT: [facility] Surgical RECD BY: Vidhya Vale ENTERED: 09/27/24 11:55 SP TYPE: Surgical OTHR DR: Nevaeh DominguezMD Tissues: A - Colon Polypectomy Procedures: Hematoxylin and Eosin Stain Gross and Microscopic Level 4
[2024-09-27 10:04] VITALS: BP 105/70; PULSE 75; RESP 24; O2SAT 100
[2024-09-27 10:14] VITALS: BP 104/73; PULSE 73; RESP 21; O2SAT 100
[2024-09-27 10:24] VITALS: BP 136/80; PULSE 61; RESP 22; O2SAT 100
== END 2024-09-27 10:40 | disposition home or self-care (01) ==
PROVIDERS: PCP Family Medicine; Referring Provider Student in an Organized Health Care Education/Training Program; Visit Provider Internal Medicine Gastroenterology
PROC: 0DJD8ZZ Inspection of Lower Intestinal Tract, Via Natural or Artificial Opening Endoscopic (ICD-10-PCS; CPT 45378; principal; 2024-09-27 10:00)
DX: Z12.11 Encounter for screening for malignant neoplasm of colon (principal); K63.5 Polyp of colon; Z87.891 Personal history of nicotine dependence; E66.9 Obesity, unspecified; Z68.30 Body mass index [BMI] 30.0-30.9, adult
CPT/HCPCS: 45385; 88305; J2003; J2704; J7120